=== PATIENT | female | born 1935 | race African-American/Black ===

== ENCOUNTER 2018-12-03 17:29 | Emergency (ER) | payer OTHER ==
[~2018-12-03] VITALS: Ht 154.9 cm; Wt 54.4 kg
[~2018-12-03 17:29] MED LIST: GABAPENTIN600 MG; METFORMIN HCL500 MG; NABUMETONE500 MG; PERCOCET 5/3251 TAB PO; PTE NO RECUERDA; RANITIDINE HCL300 MG; SIMVASTATIN20 MG; VASOTEC10 MG
[2018-12-03] MEDS ORDERED: PROTONIX40 MG (17:33)
[2018-12-03] MEDS ORDERED: VASOTEC10 MG (17:33)
[2018-12-03] MEDS ORDERED: CLONAZEPAM1 MG PO (17:33)
== END 2018-12-03 22:44 | disposition home or self-care (01) ==
LOC: ER 17:29
DX: R10.13 Epigastric pain (principal)

== ENCOUNTER 2018-12-17 09:20 | Emergency (ER) | payer OTHER ==
[~2018-12-17] VITALS: Ht 162.6 cm; Wt 47.6 kg
[~2018-12-17 09:20] MED LIST changes: +CLONAZEPAM1 MG PO; +PROTONIX40 MG
[2018-12-17] MEDS ORDERED: GABAPENTIN800 MG PO (09:35)
== END 2018-12-18 12:00 | disposition home or self-care (01) ==
LOC: ER 09:20
DX: K62.4 Stenosis of anus and rectum (principal)

== ENCOUNTER 2018-12-31 09:33 | Emergency (ER) | payer OTHER ==
[~2018-12-31] VITALS: Ht 162.6 cm; Wt 47.6 kg
[~2018-12-31 09:33] MED LIST changes: +GABAPENTIN800 MG PO
== END 2018-12-31 16:06 | disposition home or self-care (01) ==
LOC: ER 09:33
DX: N39.0 Urinary tract infection, site not specified (principal); B96.29 Other Escherichia coli [E. coli] as the cause of diseases classified elsewhere; R31.29 Other microscopic hematuria; R10.12 Left upper quadrant pain

== ENCOUNTER 2019-01-08 16:40 | Inpatient (IN) | payer OTHER ==
[~2019-01-08] VITALS: Ht 152.4 cm; Wt 72.6 kg
--- NOTE | 2019-01-08 16:46 | NUR ---
SE RECIBE PTE ALERTA Y ORIENTADA X3,EN AMBULANCIA REFIERE FAMILIAR QUE TIENE DOLOR ABDOMINAL ,REFIERE QUE LA VA OPERAR EL TOUS EL MIERCOLES DEL INTESTINO.
[2019-01-08] MEDS ORDERED: MACRODANTIN25 MG (17:00)
[2019-01-08] MEDS ORDERED: ATARAX25 MG (17:00)
--- NOTE | 2019-01-08 17:22 | NUR ---
LILLIE ORIENTA A PACIENTE SOBRE ORDENES MEDICAS, COLECTA MUESTRAS DE RIGO, CANALIZA VENA Y ADMINISTRA MEDICAMENTOS.
--- NOTE | 2019-01-08 23:50 | NUR ---
PTE ALERTA Y ORIENTADA X 3 ESFERAS EN CAMA CON BARANDAS ELEVADAS,SIN FAMILIAR AL MOMENTO DE LA BATOOL,AREA DE VENOPUNCION PATENTE Y GALLO DE EDEMA,FLUIDOS DE MANTENIMIENTO.PENDIENTE CT PO 11 40PM.
--- NOTE | 2019-01-09 02:01 | NUR ---
SE ORIENTA PACIENTE Y FAMILIAR SOBRE TX MEDICO ORDENADO POR ,AMBAS REFIEREN COMPRENDER. SE ADMINISTRA MEDICAMENTO ADOLFO ORDEN MEDICA SIGUIENDO MEDIDAS ASEPTICAS.PACIENTE NO PRESENTA REACCION ADVERSA.
--- NOTE | 2019-01-09 07:40 | NUR ---
PACIENTE ALERTA EN CAMA EN COMPANIA DE FAMILIAR CON BUEN PATRON RESPIRATORIO. IVF'S PATENTE GALLO DE EDEMA Y ENROJECIMIENTO BAJANDO UN .9NSS @100ML/HR. PACIENTE ORIENTADA SOBRE NO INGERIR ALIMENTOS. PENDIENTE RE-EVALUACION MEDICA.
== END 2019-01-12 19:31 | disposition home or self-care (01) | DRG 394 ==
LOC: ER 16:40 → SURH 01-09 09:57
PROVIDERS: ADMIT Internal Medicine
DX: K62.4 Stenosis of anus and rectum (principal); N39.0 Urinary tract infection, site not specified; K59.39 Other megacolon; E86.0 Dehydration; K59.09 Other constipation; F03.90 Unspecified dementia, unspecified severity, without behavioral disturbance, psychotic disturbance, mood disturbance, and anxiety; E11.9 Type 2 diabetes mellitus without complications